=== PATIENT | female | born 1990 | race Caucasian/White ===

== ENCOUNTER 2017-04-17 01:33 | Inpatient (IN) | payer OTHER ==
[~2017-04-17] VITALS: Ht 152.4 cm; Wt 45.4 kg
--- NOTE | 2017-04-17 01:46 | NUR ---
PT BROUGHT TO ED BY FRIEND. PT RECENTLY DISCHARGED FROM FOR DEPRESSION/ANXIETY. PT LETHARGIC AND WAS WITHOUT FINE MOTOR SKILLS. PT AROUSABLE WITH VERBAL STIMULI. PT ADMITTED TO TAKING SIXTY (60) 1MG KLONOPIN, DRINKING ALCOHOL/BEER, AND SMOKING MARIJUANA IN A SUICIDE ATTEMPT. PT TAKEN DIRECTLY TO ROOM. GEMA PETERSON AND PAO VILLARREAL CHANGED PT TO BLUE SCRUBS. PT STRAIGHT CATH FOR URINE PER PT REQUEST. DR ELLER AT BEDSIDE FOR EVAL.
[2017-04-17 02:08] LABS: ABSOLUTE BASOPHIL COUNT 0 /CUMM (0.0-0.2); ABSOLUTE EOSINOPHIL COUNT 0 /CUMM (0.0-0.7); ABSOLUTE GRANULOCYTE CT 7.5 /CUMM (1.4-6.5); ABSOLUTE LYMPH COUNT 1.8 /CUMM (1.2-3.4); ABSOLUTE MONOCYTE COUNT 0.3 /CUMM (0.10-0.60); BASOPHIL % 0.3 % (0.0-2.0); EOSINOPHIL % 0.5 % (0-5); GRANULOCYTE % 77.9 % (42.2-75.2); HEMATOCRIT 36.8 % (37-47); MEAN CORPUSCULAR HGB 29.2 PG (27.0-31.0); MEAN CORPUSCULAR VOLUME 88.6 FL (81.0-99.0); MEAN PLATELET VOLUME 8.8 FL (7.4-10.4); PLATELET COUNT 218 /CUMM (130-400); RBC DISTRIBUTION WIDTH 13.1 % (11.5-14.5); RED BLOOD CELL CT 4.15 /CUMM (4.20-5.40); WHITE BLOOD CELL COUNT 9.6 /CUMM (4.8-10.8)
--- NOTE | 2017-04-17 02:14 | ED PSYCHIATRIC COMPLAINT ---
History of Present Illness General Chief Complaint: ETOH/Drug Related Complaint Stated Complaint: ? OD , ? SI BIB SECURITY UPON MAIN ENTRANCE' Source: patient, old records, friend Exam Limitations: intoxication Vital Signs & Intake/Output Vital Signs & Intake/Output Vital Signs Date Time Temp Pulse Resp B/P B/P Pulse O2 O2 Flow FiO2 Mean Ox Delivery Rate 04/17 627 97.9 82 20 94/57 96 Room Air 04/17 0406 70 20 89/56 98 Room Air 04/17 0234 Room Air 04/17 0157 98.0 76 18 108/55 100 Room Air Allergies Coded Allergies: No Known Allergies (04/17/17) Triage Note: PT BROUGHT TO ED BY FRIEND. PT RECENTLY DISCHARGED FROM [facility] FOR DEPRESSION/ANXIETY. PT LETHARGIC AND WAS WITHOUT FINE MOTOR SKILLS. PT AROUSABLE WITH VERBAL STIMULI. PT ADMITTED TO TO TAKING SIXTY (60) 1MG KLONOPIN, DRINKING ALCOHOL/BEER, AND SMOKING MARIJUANA IN A SUICIDE ATTEMPT. PT TAKEN DIRECTLY TO ROOM. GEMA PETERSON AND PAO VILLARREAL CHANGED PT TO BLUE SCRUBS. PT STRAIGHT CATH FOR URINE PER PT REQUEST. DR ELLER AT BEDSIDE FOR EVAL. Triage Nurses Notes Reviewed? yes Onset: Just prior to arrival Duration: hour(s):, constant, continues in ED Timing: recent history Severity: severe Associated Symptoms: anxiety, impaired concentration, suicidal ideation LMP (ages 10-50): unknown : No Patient currently breastfeeds: No HPI: Patient was recently discharged from [facility] for suicidal ideation and depression. Prior to admission she drank tequila and beer reporting that she took 60 Klonopin to kill herself. She presents with an empty bottle of Klonopin. She denies fever chills nausea vomiting diarrhea abdominal pain chest pain shortness of breath headache dysuria rash bleeding homicidal ideation hallucination. (TIERNEY ELLER MD) Past History Travel History Traveled to [place] past 21 day No Medical History Any Pertinent Medical History? see below for history Psychiatric: anxiety, depression, substance abuse Surgical History Surgical History: non-contributory Psychosocial History What is your primary language Faroese Tobacco Use: Never used ETOH Use: 6 Illicit Drug Use: marijuana Family History Hx Contributory? No (TIERNEY ELLER MD) Review of Systems Review of Systems Constitutional: Reports: no symptoms. EENTM: Reports: no symptoms. Respiratory: Reports: no symptoms. Cardiovascular: Reports: no symptoms. GI: Reports: no symptoms. Genitourinary: Reports: no symptoms. Musculoskeletal: Reports: no symptoms. Skin: Reports: no symptoms. Neurological/Psychological: Reports: see HPI, confusion, emotional problems. Hematologic/Endocrine: Reports: no symptoms. Immunologic/Allergic: Reports: no symptoms. All Other Systems: Reviewed and Negative (TIERNEY ELLER MD) Physical Exam Physical Exam General Appearance: well developed/nourished, lethargic, mild distress, thin Head: atraumatic, normal appearance Eyes: Bilateral: normal appearance, PERRL, EOMI. 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 yes 2 Previous Attempts/Psych Care yes 1 Excessive Ethanol/Drug Use? yes 1 Rational Thinking Loss? yes 2 Single//? yes 1 Organized/Serious Attempt yes 2 Social Support? has support 0 Stated Future Intent? yes 2 Total 11 SAD PERSONS Done? yes (TIERNEY ELLER MD) Progress Differential Diagnosis: drug intoxication, drug overdose, drug withdrawal, electrolyte abnormality, hypoglycemia Plan of Care: Orders Procedure Date/time Status Regular Diet 04/18 B Active Continuous Observation Monitor 04/17 0545 Active Vital Signs 04/17 149 Complete Continuous Observation Monitor 04/17 149 Active Activity/Ambulation 04/17 149 Complete URINE DRUG SCREEN FOR ER ONLY 04/17 149 Complete ACETOMINOPHEN 04/17 149 Complete SALICYLATE 04/17 149 Complete ETHANOL 04/17 149 Complete COMPREHENSIVE METABOLIC PANEL 04/17 149 Complete CBC WITHOUT DIFFERENTIAL 04/17 149 Complete EKG 04/17 149 Active Intake & Output 04/17 147 Complete Laboratory Tests 04/17/17 0202: Anion Gap 12, Estimated GFR > 60, BUN/Creatinine Ratio 15.7, Glucose 87, Calcium 9.6, Total Bilirubin 0.4, AST 22, ALT 41, Alkaline Phosphatase 46, Total Protein 6.7, Albumin 4.1, Globulin 2.6, Albumin/Globulin Ratio 1.6, CBC w Diff NO MAN DIFF REQ, RBC 4.15 L, MCV 88.6, MCH 29.2, RDW 13.1, MPV 8.8, Gran % 77.9 H, Lymphocytes % 18.5 L, Monocytes % 2.8, Eosinophils % 0.5, Basophils % 0.3, Absolute Granulocytes 7.5 H, Absolute Lymphocytes 1.8, Absolute Monocytes 0.3, Absolute Eosinophils 0, Absolute Basophils 0, PUBS MCHC 33.0, Salicylates < 1.0, Acetaminophen < 10.0 L, Serum Alcohol 102.0 04/17/17 0151: Urine Opiates Screen < 100.00, Methadone Screen < 40, Barbiturate Screen < 60, Ur Phencyclidine Scrn < 6.00, Amphetamines Screen < 100, U Benzodiazepines Scrn < 85, Urine Cocaine Screen < 50, Urine Cannabis Screen 5.80 Hand-Off Endorsed To: MAIK ZARCO DO Endorsed Time: 0700 Pending: consult Comments: Hospitalization ordered based on history of overdose by patient but reversed as her drug screen was negative and she continued to be confrontational and agitated to admitting hospitalist. (TIERNEY ELLER MD) Departure Departure Disposition: STILL A PATIENT Condition: Stable Clinical Impression Primary Impression: Depression with suicidal ideation Secondary Impressions: Alcohol intoxication Qualifiers: Complication of substance-induced condition: with delirium Qualified Code: F10.921 - Alcohol use, unspecified with intoxication delirium Referrals: PATIENT HAS NO PRIMARY CARE DR (PCP/Family) Departure Forms: Customer Survey General Discharge Information (TIERNEY ELLER MD) Departure Comments 04/17/17 The patient was signed out to me by Dr. Eller. She is pending crisis evaluation. (MAIK ZARCO DO)
--- NOTE | 2017-04-17 02:38 | NUR ---
ONE (1) BELONGINGS BAG TO CLOSET. ONE (1) VALUABLE BAG TO [facility] ROOM SAFE
--- NOTE | 2017-04-17 02:56 | History & Physical ---
General Information and HPI Allergies/Medications Allergies: Coded Allergies: No Known Allergies (04/17/17) Past History Travel History Traveled to [place] past 21 day No Medical History Psychiatric: anxiety, depression, substance abuse Isolation History: Standard Past Family/Social History Psychosocial History ETOH Use: 6 Illicit Drug Use: marijuana
--- NOTE | 2017-04-17 03:08 | NUR ---
POC: ADMIT TO TELE INPATIENT, WILL BE HOLD IN ED OVERNIGHT. SLEEPING ON STRETCHER AT THIS TIME W/ REGULAR RESPIRATIONS. HR: 63 NSR ON MONITOR.
--- NOTE | 2017-04-17 04:09 | NUR ---
EVALUATED BY HOUSE STAFF AND MD TANNER. PATIENT REQUESTING ADDISON TO BE D/JOHN. HOUSE STAFF AWARE AND OKAY W/ D/CING ADDISON. ADDISON D/JOHN W/O DIFFICULTY. 500ML CLEAR YELLOW URINE EMPTIED PRIOR TO D/CING. PATIENT LAYING ON STRETCHER IN ROOM, NOTED TO BE PULLING BLANKET OVER HER HEAD STATING "THE LIGHTS ARE TOO BRIGHT, I FEEL LIKE I'M HAVING A BAD HANGOVER." PATIENT LIGHTS DIMMED.
--- NOTE | 2017-04-17 04:54 | NUR ---
POC: EVALUATED BY HOUSE STAFF, PATIENT NO LONGER ADMISSION TO HOSPITAL, BEING CHANGED TO ER PATIENT W/ CRISIS EVAL D/T NEGATIVE U-TOX S/P PATIENT REPORTED OD ON KLONOPIN.
--- NOTE | 2017-04-17 06:31 | NUR ---
AWAKE FOR V/S OFFERS NO COMPLAINTS
--- NOTE | 2017-04-17 07:50 | NUR ---
ASSUMED CARE OF PT WHO IS CURRENTLY SLEEPING. RR EVEN AND UNLABORED. SITTER REMAINS AT BEDSIDE.
--- NOTE | 2017-04-17 08:27 | NUR ---
Patient found with a cell phone and when asked why she had it, she replied that when her friend was with her last night, she gave it to her when she left. Explained per hospital policy, we would have to lock it up with her other valuables. Valuables bag given to Pod 2 RN. Patient took various tele phone numbers off her phone.
--- NOTE | 2017-04-17 10:15 | NUR ---
PT WITH NO COMPLAINTS AT THIS TIME. SITTER REMAINS AT BEDSIDE.
[2017-04-17] MEDS ORDERED: CLONAZEPAM1 M2 PO (10:16)
[2017-04-17] MEDS ORDERED: DULOXETINE HCL60 MG PO (10:16)
[2017-04-17] MEDS ORDERED: TRAZODONE HCL100 M1 PO (10:17)
[2017-04-17] MEDS ORDERED: ALLEGRA ALLERG180 M1 PO (10:18)
--- NOTE | 2017-04-17 12:30 | NUR ---
PT CALLED THIS NURSE TO FIND OUT WHAT HER POC IS AND INFORMED I WILL CHECK AND GET BACK TO HER. PER NURSE PT WAS AWAITING EVAL BY CRISIS BUT PER CRISIS NO ORDER PLACED. MD ZARCO INFORMED AND ORDER PLACED AND CRISIS UPDATED AND PT ALSO UPDATED SHE WILL BE EVALUATED SOON
--- NOTE | 2017-04-17 14:26 | NUR ---
PT WAS REFUSING TO DISCUSS WITH SLICING MACHINE FEEDER RAJNI SHE SPOKE WITH MD AND NURSE ALL TOGETHER. DR. ZARCO AND THIS WOMENS VOLLEYBALL COACH AND CLINICIAN SPOKE AT [facility] WITH PT AND THE END RESULT IS TO REPEAT URINE TOX AND PT NOW WILLING TO TRY ICE CHIPS
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
--- NOTE | 2017-04-17 17:24 | NUR ---
PT ON PHONE
[2017-04-17 17:25] VITALS: BP 116/64
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
--- NOTE | 2017-04-17 19:06 | NUR ---
REPORT TO RA IN [facility]
[2017-04-17 19:20] VITALS: BP 114/64
--- NOTE | 2017-04-17 19:34 | NUR ---
PT TRANSPORTED TO [facility]. ALL BELONGINGS GIVEN TO [facility] STAFF
[2017-04-17 19:51] VITALS: BP 123/89
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
--- NOTE | 2017-04-17 23:27 | Admission Certification ---
Admission Certification Certification Statement - As attending physician, I certify that at the time of - admission, based on clinical presentation, severity of - symptoms, need for further diagnostic testing and - therapeutic interventions, and risk of adverse outcomes - without in-hospital treatment, in my clinical assessment, - this patient requires an acute hospital stay for a minimum - of two nights or longer. I have also considered psychsocial - factors such as support system, advanced age, financial - issues, cognitive issues, and failed out-patient treatments, - past re-admission history, safety of patient, and lack of - compliance as applicable. Specific rationale supporting this admission is: suicidal ideation
[2017-04-18] VITALS (9 sets, daily range): BP systolic 92–112; BP diastolic 53–73
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
--- NOTE | 2017-04-18 14:31 | NUR ---
PT IS PLEASANT, CALM, COOPERATIVE AND COMPLIANT. PT IS CONCERNED WITH HER NUTRTION AND HAD A NUTRITIONAL CONSULT A RESULT. PT HAS BEEN ATTENDING GROUPS ALL MORNING. PT REPORTED FEELING A BIT ANXIOUS DUE TO THE DECREASED ANXIOLYTICS BUT WANTS TO FIND POSITIVE COPING SKILLS THAT DON'T INCLUDE MEDICATIONS. VS ARE STABLE AND DENIES ANY SI/HI TO THIS MHW.
--- NOTE | 2017-04-18 18:05 | NUR ---
PT IS CALM, COOPERATOVE WITH STAFF AND PEERS, AND COMPLIANT WITH UNIT RULES. OFTEN IN MILIEU, INTERACTING WELL WITH OTHERS. MOOD IS STABLE, AFFECT APPEARS EUTHYMIC TO FULL RANGE, COMMUNICATION IS ORGANIZED AND APPEARS NORMAL IN ALL RESPECTS, AND APPETITE IS NORMAL. PT DENIES SI AT THIS TIME.
[2017-04-19] VITALS (10 sets, daily range): BP systolic 100–111; BP diastolic 53–83
--- NOTE | 2017-04-19 06:02 | NUR ---
PATIENT SLEPT ALL NIGHT.
--- NOTE | 2017-04-19 07:19 | NUR ---
Patient was up at desk at 0700, anxious, tremulous, restless, did not seem able to stand still; she reported several severe nightmares during the night; blood pressure and pulse were normal, but CIWA score based on symptoms was 11, so prn Ativan 1mg was given; patient was also mildly diaphoretic; patient has been cooperative with treatment plan, and has not pushed for extra doses of benzodiazepine medications.
--- NOTE | 2017-04-19 12:22 | NUR ---
PT REPORTED FEELING DEPRESSED AND ANXIOUS TODAY. SHE DENIED ANY THOUGHTS OF SUICIDE OR SELF HARM. SHE VERBALIZED HER FEELINGS APPROPRIATELY IN GROUPS AND ONE TO ONE WITH STAFF. SHE IS COMPLIANT WITH HER MED REGIME AND IS FRIENDLY WITH STAFF AND PEERS
--- NOTE | 2017-04-19 12:55 | CP SOUTH PROGRESS NOTE PSYCH ---
Psych (Inpt) Progress Note Progress Note Include the following elements, when applicable: Involvement in the active treatment of the patient with behavioral observations of the patient and the patient's response to the treatment. Review of the ongoing treatment process in the context of the treatment plan. Indication of how multi-disciplinary staff members are carrying out the treatment plan. Plans for future interventions and recommendations for revision of the treatment plan. Liaison with other physicians/providers. Progress Note: Patient seen chart reviewed d/w nursing staff she reports NM at night "it might be worse but i have been having alot of triggers here". She denies si/hi. reports some "odd feeling" with gabapentin which has been helping with anxiety. Sleeping okay but inquiring about dc, states she has apt on thu with therapist and provider on . denies cravings urges for alcohol CF, thin, short hair casually dressed, no pmr/pma cooperative fair eye contact. normal speech, anxious mood congruent affect. linear denies si/hi or psychosis. i/j limited Depressive d/o alcohol abuse ptsd will reduce gabapentin to 200mg tid, also make ciwa q4 hours not scoring, could be having some odd sensation from reduction in klonopin since arrival she will d /w primary team tomorrow
--- NOTE | 2017-04-19 18:12 | NUR ---
PT IS CALM, COOPERATIVE WITH STAFF AND PEERS, AND COMPLIANT WITH UNIT RULES. OFTEN IN MILIEU, INTERACTING WELL WITH OTHERS. MOOD IS STABLE, AFFECT APPEARS EUTHYMIC TO FULL RANGE, COMMUNICATION IS ORGANIZED AND APPEARS NORMAL IN ALL RESPECTS, AND APPETITE IS NORMAL. PT DENIES SI AT THIS TIME.
[2017-04-20] VITALS (8 sets, daily range): BP systolic 106–122; BP diastolic 63–83
--- NOTE | 2017-04-20 12:58 | NUR ---
PT IS COMPLIANT AND COOPERATIVE WITH UNIT RULES. PT IS OUT IN THE COMMUNITY INTERACTING WELL WTIH OTHERS. PT IS ATTENDING GROUPS. PT MOOD IS STABLE WITH A EYUTHMIC TO FULL RANGE AFFECT. PT REPORTS SOME ANXIETY THIS SHIFT. PT DENIES SI THOUGHTS.
--- NOTE | 2017-04-20 16:52 | CP SOUTH PROGRESS NOTE PSYCH ---
Psych (Inpt) Progress Note Progress Note Include the following elements, when applicable: Involvement in the active treatment of the patient with behavioral observations of the patient and the patient's response to the treatment. Review of the ongoing treatment process in the context of the treatment plan. Indication of how multi-disciplinary staff members are carrying out the treatment plan. Plans for future interventions and recommendations for revision of the treatment plan. Liaison with other physicians/providers. Progress Note: I discussed this patient's progress to date, current mental status, treatment process in the context of the treatment plan, and discharge planning with staff/ team in the daily morning inpatient team meeting. I also met with the patient myself in individual session. Current Medications Sig/Arnulfo Start time Last Medication Dose Route Stop Time Status Admin Aripiprazole 2 MG 2100 04/20 2100 UNVr PO Clonazepam 0.5 MG TID 04/18 1000 AC 04/20 PO 04/24 1559 1528 Duloxetine HCl 60 MG DAILY 04/18 1000 AC 04/20 PO 0850 Gabapentin 200 MG 0800,1400,2200 04/20 220 UNVr PO Gabapentin 200 MG Q6P PRN 04/19 1200 AC 04/20 PO 0945 Loratadine 10 MG DAILY 04/18 1000 AC 04/20 PO 0850 Lorazepam 2 MG Q2P PRN 04/17 1515 AC 04/17 PO 1740 Lorazepam 1 MG Q2P PRN 04/17 1515 AC 04/19 PO 0715 Multivitamins 1 TAB DAILY 04/17 1512 AC 04/20 PO 0850 Prazosin HCl 2 MG AT BEDTIME 04/200 UNVr PO Prazosin HCl 1 MG AT BEDTIME 04/18 2200 DC 04/19 PO 2126 Trazodone HCl 200 MG AT BEDTIME 04/17 2200 AC 04/19 PO 2126 Vital Signs Date Time Temp Pulse Resp B/P B/P Pulse O2 O2 Flow FiO2 Mean Ox Delivery Rate 04/20 1552 81 116/83 04/20 1535 81 116/63 04/20 1227 73 122/64 04/20 1226 73 122/64 04/20 0815 97.1 98 106/82 04/20 0813 97.8 98 106/82 04/19 2126 81 107/83 04/19 1955 97.2 81 107/83 04/19 195 97.2 81 107/53 A: Chart, progress notes, labs, vital signs and medication list were reviewed. Vital signs within normal limits. Scoring low on CIWA. Patient is a 26-year-old female w/ a hx of depression, PTSD and alcohol abuse who was brought into [facility] ED on 04/17/17 by her friend s/p overdose attempt on Klonopin. Claimed she took #90 tabs of 1mg Klonopin, with unclear intent. BAL = 102. Stated triggering event was a challenging therapy session the day before ED arrival which led her to ruminate over past feelings. Stated she decided to meet up with a friend, drank, and then took "the pills" to alleviate depression. She reported multiple prior suicide attempts (9 overdoses and jumping from a 3rd story window which required medical tx); last suicide attempt was 5 years ago when she jumped from 3rd story window. 15 prior psychiatric hospitalizations, last at [facility] 1 month ago. Since, she has been attending [facility] IOP (med management only) and seeing an individual therapist (Darren Saul at [facility] in [place], [place]). She denied having a problem with alcohol, stated she drank d/t feeling overwhelmed. Stated that prior to drinking last , she drank 2-3 beers total on a weekly basis. Stated that she had been prescribed 1mg Klonopin TID outpatient; was focused on this dose being increased while here. Declined patient's request given recent OD. Patient agreeable to trial alternative medication options while here to manage anxiety. Met with patient this afternoon. Oriented x 3. Described having an "ok" weekend. Continues to feel depressed. Rates anxiety a 10/10 (10 being the worst). Rates depression a 7-8/10 (10 being the worst). Shares that she needs Cymbalta increased, however, recalls that when it was first started/increased (approx. 1 month ago) her appetite diminished. States she is trying to gain healthy weight, had a nutrition consult to learn about other ways to supplement her appetite. Now taking ensure with meals. Tolerating this well. Denies hx of disordered eating. Talked about medications that could be used to adjunct antidepressant effect, given her concern of destabilizing her appetite by further increasing Cymbalta. Mentioned using low-dose Abilify as an adjunct to Cymbalta to further target depression. Reviewed the risk/benefit/se profiles including movement disorders, metabolic syndrome, weight gain, diabetes, hypertension and hyperlipidemia. Patient verbalized understanding and was agreeable to trial. Today, she denies active and passive suicidal ideation, plans and intent. Denies homicidal ideation, auditory and visual hallucinations. Reports continued nightmares and DFA secondary to NMAs. Agreeable to increase Prazosin 1mg to 2mg QHS for NMAs. Reports mild ruminative thoughts. No evidence of paranoia or delusions. Reports appetite is slowly improving. Thought process linear, goal- directed. Cognition grossly intact. Pt w/ hx of MDD, PTSD who presented volutnarily for inpatient psych admission, making slow progress s/p overdose attempt with continued depression. Continues to require inpatient psychiatric hospitalization for stabilization, safety and medication monitoring. P: -cont. monitoring on unit for safety, mood and SI. -change Gabapentin 200mg Q6H prn to 200mg TID for anxiety/discomfort. -cont. Cymbalta 60mg daily for depression. -cont. Klonopin 0.5mg TID. -start Abilify 2mg QPM for ruminative thoughts/antidepressant adjunct. -dispo. planning per primary team.
--- NOTE | 2017-04-20 19:26 | SOCIAL WORKER PROG NOTE PSYCH ---
Social Work Progress Note Progress Note 04/20/17, 5:55pm: This Sw met with patient. Pt discussed events leading to hospitalization stating that she had begun to discuss trauma with her outpatient therapist and did not have adequate coping skills to manage the emotions resulting in overdose. Pt stated that she also drank alcohol, 4-5 shots and 1 beer. She stated, "I don't have any addiction problem, I have a coping skills problem." Pt stated that she has been coping with emotions through alcohol use. This underwriter approached AA meetings with the pt, however, she stated that she was not interested due to not identifying as having an addiction. Pt stated that she made the decision upon discharge from [facility] on 03/16/17 not to drink and drank once when she overdosed resulting in current admission. Pt identified as being in a "pretty deep depression." She identified a plan for tonight to "attend group, talk to supports by phone, shower, take my meds and go to bed." Pt stated that she is not interested in IOP, however, is interested in outpatient treatment. Pt will sign a NORRIS for her friend, Abril. She has agreed to schedule a family meeting with the friend and this underwriter will attempt to contact Abril by phone.
--- NOTE | 2017-04-20 22:14 | NUR ---
PT IS VISIBLE ON UNIT, SOCIAL WITH PEERS AND ATTENDING GROUPS. PT IS OVERALL COOPERATIVE AND COMPLIANT WITH STAFF. PT DID REPORT TO STAFF FEELING OUT OF BEHAVIORAL CONTROL WHEN DEALING WITH ANGER TOWARDS PEER. PT WAS PROVIDED WITH SUPPORT FROM STAFF AND CHARGE NURSE MADE AWARE. NO COMPLAINTTS OR SI REPORTED. PT HAS AN ANXIOUS MOOD AND LABILE AFFECT.
--- NOTE | 2017-04-20 23:49 | NUR ---
Patient c/o not being able to use blankets out on unit. Patient was offered warmer clothing and refused. Patient became tearful and acted out in room without further incident.
[2017-04-21] VITALS (7 sets, daily range): BP systolic 112–121; BP diastolic 60–69
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
--- NOTE | 2017-04-21 11:28 | SOCIAL WORKER PROG NOTE PSYCH ---
Social Work Progress Note Progress Note Called [facility] [phone] left clincial for review on voicemail requesting additional days.
--- NOTE | 2017-04-21 14:04 | NUR ---
PT IS STABLE WITH FULL RANGE OF AFFECT. PT WAS TEARFUL EARLIER IN THE MORNING AFTER FINDING OUT THAT HER NEPHEW MAY HAVE LEUKEMIA AFTER JUST BATTLING WITH A NEOGLASTOMA. PT FEELS THAT SHE NEEDS TO BE THERE "SUPPORT" FOR HER FAMILY. PT REPORTED UNDERSTANDING THAT SHE "NEEDS TO TAKE CARE OF MYSELF FIRST AND THEN BE THERE FOR THEM". OTHERWISE PT IS APPROPRIATE, PLEASANT AND COOPERATIVE. VS ARE STABLE AND DENIES ANY SI/HI TO THIS MHW.
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
--- NOTE | 2017-04-21 16:35 | SOCIAL WORKER PROG NOTE PSYCH ---
Social Work Progress Note Progress Note SW received vm from [facility] regarding authorization: - authorized and with a review on the with Trish Dickens at [phone]
--- NOTE | 2017-04-21 18:17 | SOCIAL WORKER PROG NOTE PSYCH ---
Social Work Progress Note Progress Note 5:30pm Sw met with Pt. She reported that she is learning coping skills to manage her depression, particularly "keeping busy." Pt stated that she thought about our last conversation regarding AA and has become interested in learning more. She plans to attend the AA meeting mio on this unit. Pt was informed that this editorial writer was able to reach her friend, Judy Dominguez, and a phone session has been scheduled for 04/22/17 at 1pm. Pt was in agreement with this. Regarding discharge plans, she stated that she is not able/willing to attend IOP due to work and would like to return to her individual therapist, Angela Saul, at the [facility] in [place], [place]. She stated that she had an appt scheduled with this provider on 04/22/17 at 7pm and Cj Saul was notified by the pt's friend that the pt is currently in the hospital. Additionally, she stated that she has an CHIROPRACTIC TEACHER, Catrachita (last name unknown), whom she is willing to schedule an appt with as part of her discharge plan, however, has spoken with Cj Saul in interest of finding a new CHIROPRACTIC TEACHER. Pt will sign NORRIS's for her providers and SW will follow up regarding discharge plans.
[2017-04-22] VITALS (8 sets, daily range): BP systolic 109–125; BP diastolic 61–74
--- NOTE | 2017-04-22 06:39 | NUR ---
PATIENT WAS BRIEFLY AWAKE IN BED X1, OTHERWISE SLEPT ALL NIGHT.
--- NOTE | 2017-04-22 13:22 | NUR ---
PT IS COMPLIANT AND COOPERATIVE. MOOD IS STABLE WITH A FULL RANGE OF AFFECT. PT DENIES SI AT THIS TIME, C/O CHRONIC PAIN. PT IS PRESENT IN THE COMMUNITY AND INTERACTING WELL WITH PEERS AND STAFF. PT IS ATTENDING GROUPS. VITALS ARE STABLE, APPETITE IS GOOD.
--- NOTE | 2017-04-22 13:41 | CP SOUTH PROGRESS NOTE PSYCH ---
Psych (Inpt) Progress Note Progress Note Include the following elements, when applicable: Involvement in the active treatment of the patient with behavioral observations of the patient and the patient's response to the treatment. Review of the ongoing treatment process in the context of the treatment plan. Indication of how multi-disciplinary staff members are carrying out the treatment plan. Plans for future interventions and recommendations for revision of the treatment plan. Liaison with other physicians/providers. Progress Note: I discussed this patient's progress to date, current mental status, treatment process in the context of the treatment plan, and discharge planning with staff/ team in the daily morning inpatient team meeting. I also met with the patient myself in individual session. Current Medications Sig/Arnulfo Start time Last Medication Dose Route Stop Time Status Admin Aripiprazole 2 MG 2100 04/20 2100 AC 04/21 PO 212 Clonazepam 0.5 MG TID 04/18 1000 AC 04/22 PO 04/24 1559 0842 Duloxetine HCl 60 MG DAILY 04/18 1000 AC 04/22 PO 0841 Gabapentin 400 MG 0800,1400,0 04/22 1400 AC 04/22 PO 1408 Gabapentin 300 MG Q6P PRN 04/21 1400 AC 04/22 PO 1241 Gabapentin 300 MG 0800,1400,0 04/21 1400 DC 04/22 PO 0841 Glycerin 2 SPRAY Q2P PRN 04/21 1400 AC 04/22 PO 1408 Loratadine 10 MG DAILY 04/18 1000 AC 04/22 PO 0841 Lorazepam 2 MG Q2P PRN 04/17 1515 AC 04/17 PO 1740 Lorazepam 1 MG Q2P PRN 04/17 1515 AC 04/19 PO 0715 Multivitamins 1 TAB DAILY 04/17 1512 AC 04/22 PO 0841 Prazosin HCl 2 MG AT BEDTIME 04/20 2200 AC 04/21 PO 2126 Sodium Chloride 2 SPRAY Q4P PRN 04/22 1015 AC LINDSAY Trazodone HCl 200 MG AT BEDTIME 04/17 2200 AC 04/21 PO 2127 Vital Signs Date Time Temp Pulse Resp B/P B/P Pulse O2 O2 Flow FiO2 Mean Ox Delivery Rate 04/22 1232 78 117/66 04/22 1230 78 117/66 04/22 0832 99.0 98 125/74 04/22 0830 99.0 78 125/74 04/216 79 113/60 04/21 2012 98.9 79 113/60 04/21 2011 98.9 79 113/60 04/21 1631 88 112/63 04/21 1612 88 / A: Chart, progress notes, labs, vital signs and medication list were reviewed. Vital signs within normal limits. Met with patient this afternoon together with Nani Hernández LCSW. Patient reports improved anxiety since increase in gabapentin yesterday. Rates anxiety today a 4-5/10 (10 being the worst). She asked about increasing gabapentin further for more anxiolytic relief, as she reports steadily worrying about 6y/o nephew who might have leukemia (found this out by phone yesterday). She also reports continued NMAs and requested an increase in Prazosin. States that her depression is variable "as low as a 3 and as high as a 9 at times (using 0-10 scale)." She denies passive and active suicidal ideation, plans and intent. Denies homicidal ideation, auditory and visual hallucinations. Denies racing thoughts or paranoia. There was no evidence of delusional content. Denies feeling hopeless, helpless and worthless. Reports lessening guilt from prior OD. Thought process linear, goal-directed. A phone conference was held with the patient, her roommate/best friend Abril, Nani Hernández LCSW, and I. Patient's treatment progress to date, medication regimen, discharge planning and level of safety were reviewed/discussed. Abril stated that she is aware of the circumstances which led to patient's present hospitalization, including her overdose. She shared that the patient has a difficult time being alone, had struggled processing therapy session which resulted in overdose. Abril seemed very supportive and willing to be involved in the patient's care post-discharge. She did not disclose any safety concerns regarding the patient's discharge or tentative discharge plan of resuming therapy and medication management with former outpatient providers. We also talked about the patient engaging in AA meetings for support in sobriety as she identified that she tends to resort to alcohol use to cope with unpleasant feelings. She shared that she attended the AA meeting on unit and took away positive feedback from the group and also highlighted meeting dates/times in AA meeting schedule book that she can attend on her free time outside of the hospital. Both the patient and Abril were in favor of discharge plan. P: -cont. monitoring on unit for safety, mood and SI. -increase Prazosin 2mg QHS to 3mg QHS for NMAs. -increase standing Gabapentin 300mg TID to 400mg TID for anxiety/discomfort. -collaborate with former therapist/prescriber to arrange aftercare appointments. P: -cont. monitoring on unit for safety, mood and safety. -Increase Gabapentin from 300mg TID to 400mg TID for anxiety/discomfort. -Increase Prazosin 2mg QHS to 3mg QHS for NMAs. -Dispo planning per primary team.
--- NOTE | 2017-04-22 17:08 | SOCIAL WORKER PROG NOTE PSYCH ---
Social Work Progress Note Progress Note 4:55pm: This Sw left vm for Angela Saul LCSW, patient's individual outpatient therapist, requesting a call back. A call back number was provided. Plan is to schedule an outpatient individual therapy appointment. 4:58pm: Attempted to reach pt's outpatient medication provider, Catrachita Rubio, however, office was closed. This Sw will attempt to call during office hours to schedule appt for pt as part of pt's discharge plan.
--- NOTE | 2017-04-22 18:12 | NUR ---
PT IS CALM, COOPERATIVE WITH STAFF AND PEERS, AND COMPLIANT WITH UNTI RULES. OFTEN IN [place], INTERACTING WELL WITH OTHERS. MOOD IS STABLE, AFFECT APPEARS EUTHYMIC TO FULL RANGE, COMMUNICATION IS ORGANIZED AND APPEARS NORMAL IN ALL RESPECTS, AND APPETITE IS NORMAL. PT DENIES SI AT THIS TIME.
--- NOTE | 2017-04-22 19:18 | SOCIAL WORKER PROG NOTE PSYCH ---
Social Work Progress Note Progress Note 1:15pm Macrina Cardoso APRN met with pt. Pt discussed questions and concerns about medications. She reported that she is sleeping well and has an improved mood, however reports variable levels of anxiety with highest at a 9/10 at times. Discharge plans were also discussed with an anticipated d/c date of tomorrow or Thursday (04/24/17). She signed NORRIS for her outpt therapist and WASHER ENGINEER. Pt stated that she is interested in finding a new medication prescriber and will work with her therapist on this. She is willing to schedule an appt with her current WASHER ENGINEER at this time. 1:25pm González GONZALES APRN and pt contacted her friend, Judy, by phone for a family session. Discharge plans were reviewed and pt stated that she also intends on going to AA meetings. She shared that she has obtained a meeting schedule and begun to identify meetings she can attend. Abril stated that she is aware of the events, including the OD, leading to the current inpt admission. She does not have any concerns about the pt discharging from the hospital. Strategies to manage emotions were discussed. Neither pt, nor her friend, have concerns about the pt's ability to be compliant with medications.
[2017-04-23] VITALS (7 sets, daily range): BP systolic 112–124; BP diastolic 63–75
--- NOTE | 2017-04-23 08:24 | CP SOUTH PROGRESS NOTE PSYCH ---
Psych (Inpt) Progress Note Progress Note Include the following elements, when applicable: Involvement in the active treatment of the patient with behavioral observations of the patient and the patient's response to the treatment. Review of the ongoing treatment process in the context of the treatment plan. Indication of how multi-disciplinary staff members are carrying out the treatment plan. Plans for future interventions and recommendations for revision of the treatment plan. Liaison with other physicians/providers. Progress Note: I discussed this patient's progress to date, current mental status, treatment process in the context of the treatment plan, and discharge planning with staff/ team in the daily morning inpatient team meeting. I also met with the patient myself in individual session. Current Medications Sig/Arnulfo Start time Last Medication Dose Route Stop Time Status Admin Aripiprazole 2 MG 2100 04/20 2100 AC 04/22 PO 210 Clonazepam 0.5 MG TID 04/18 1000 AC 04/23 PO 04/24 1559 0804 Duloxetine HCl 60 MG DAILY 04/18 1000 AC 04/23 PO 0805 Gabapentin 400 MG 0800,1400,2200 04/22 1400 AC 04/23 PO 0805 Gabapentin 300 MG Q6P PRN 04/21 1400 AC 04/22 PO 1241 Gabapentin 300 MG 0800,1400,2200 04/21 1400 DC 04/22 PO 0841 Glycerin 2 SPRAY Q2P PRN 04/21 1400 AC 04/22 PO 1739 Loratadine 10 MG DAILY 04/18 1000 AC 04/23 PO 0805 Lorazepam 2 MG Q2P PRN 04/17 1515 AC 04/17 PO 1740 Lorazepam 1 MG Q2P PRN 04/17 1515 AC 04/19 PO 0715 Multivitamins 1 TAB DAILY 04/17 1512 AC 04/23 PO 0805 Prazosin HCl 3 MG AT BEDTIME 04/22 2200 AC 04/22 PO 2108 Prazosin HCl 2 MG AT BEDTIME 04/20 2200 DC 04/21 PO 2126 Sodium Chloride 2 SPRAY Q4P PRN 04/22 1015 AC 04/22 LINDSAY 1741 Trazodone HCl 200 MG AT BEDTIME 04/17 2200 AC 04/22 PO 2107 Vital Signs Date Time Temp Pulse Resp B/P B/P Pulse O2 O2 Flow FiO2 Mean Ox Delivery Rate 04/238 97.7 95 119/64 04/22 2108 82 109/61 04/22 1950 97.1 82 109/61 04/22 194 97.1 82 109/61 04/22 1623 81 116/64 04/22 1622 81 116/64 04/22 1232 78 117/66 04/22 1230 78 117/66 04/22 0832 99.0 98 125/74 04/22 0830 99.0 78 125/74 A: Chart, progress notes, labs, vital signs and medication list were reviewed. Vital signs within normal limits. Met with patient this morning. Oriented x 3. Alert. Presents in good spirits. States she woke up early this morning due to a screaming patient. Otherwise, reports sleeping well overnight with a few minor awakenings d/t "weird dreams." Reports being able to return to sleep following these dreams. States stress level was high last evening d/t a particular female patient who is very disruptive on unit. Also continues to worry about the health of her 6y/o nephew. States she is coping by exercising and doing yoga. Feels increase in gabapentin is also helping her manage anxiety. States her energy level and appetite are good. Reports sleep is improved since admission to hospital. Rates anxiety a 4/ 10 (10 being the worst). States her depression fluctuates. Denies active and passive suicidal ideation, plans and intent. States she has not endorsed SI since prior to OD leading her here. Reports today that Daniel OD was not a suicide attempt but rather an attempt to cope with anxiety. Denies homicidal ideation, auditory and visual hallucinations. Describes mood as "clear." Affect bright, full-range, non-labile. Eye contact appropriate. Speech normal in rate, tone and volume. Thought process linear and goal-directed to return to work and follow-up with tentative aftercare plan. Patient is agreeable to follow up with [facility]PS for medication management in the event that her former prescriber does not take her back. Patient reports tolerating medications well, denies untoward effects. Will continue medications as prescribed. P: -cont. current medications. -cont. monitoring on unit for safety, mood and SI. -dispo planning per primary team. -discharge tomorrow.
--- NOTE | 2017-04-23 13:41 | NUR ---
PT IS COMPLIANT AND COOPERATIVE. MOOD IS STABLE WITH A FULL RANGE OF AFFECT. PT DENIES SI AT THIS TIME, NO COMPLAINTS OFFERED. PT IS PRESENT ON THE UNIT AND INTERACTING WELL WITH PEERS AND STAFF. PT IS ATTENDING GROUPS. VITALS ARE STABLE, APPETITE IS GOOD.
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
--- NOTE | 2017-04-24 05:40 | NUR ---
PT APPEARS EUTHYMIC. PT SLEPT. SHE WILL DC TODAY.
[2017-04-24 07:34] VITALS: BP 109/80
[2017-04-24 07:52] VITALS: BP 109/80
--- NOTE | 2017-04-24 11:14 | NUR ---
PT IS SCHEDULED FOR DISCHARGE TODAY TO [facility]. SHE REPORTS AND DEMONSTRATES IMPROVEMENT IN HER MOOD AND ABILITY TO FUNCTION. PT DENIES ANY THOUGHTS OF SUICIDE OR SELF HARM AT THIS TIME. SHE IDENTIFIES POSITIVE WAYS TO COPE. SHE ENJOYS YOGA..EXERCISE AND MUSIC. SHE VERBALIZES A GOOD UNDERSTANDING OF HER MED REGIME AND TREATMENT PLAN. SHE AGREES TO FOLLOW UP WITH OUT PT. SHE IS GIVEN EDUCATION R/T MANAGING HER DEPRESSION AND ON SUICIDE PREVENTION.SHE EXHIBITS FULL RANGE OF AFFECT
--- NOTE | 2017-04-24 11:46 | CP SOUTH PROGRESS NOTE PSYCH ---
Psych (Inpt) Progress Note Progress Note Include the following elements, when applicable: Involvement in the active treatment of the patient with behavioral observations of the patient and the patient's response to the treatment. Review of the ongoing treatment process in the context of the treatment plan. Indication of how multi-disciplinary staff members are carrying out the treatment plan. Plans for future interventions and recommendations for revision of the treatment plan. Liaison with other physicians/providers. Progress Note: I discussed this patient's progress to date, current mental status, treatment process in the context of the treatment plan, and discharge planning with staff/ team in the daily morning inpatient team meeting. I also met with the patient myself in individual session. Current Medications Sig/Arnulfo Start time Last Medication Dose Route Stop Time Status Admin Aripiprazole 2 MG 2100 04/20 2100 AC 04/23 PO 2127 Clonazepam 0.5 MG TID 04/18 1000 AC 04/24 PO 04/24 1559 0833 Duloxetine HCl 60 MG DAILY 04/18 1000 AC 04/24 PO 0832 Gabapentin 400 MG 0800,1400,2200 04/22 1400 AC 04/24 PO 0832 Gabapentin 300 MG Q6P PRN 04/21 1400 AC 04/23 PO 1704 Glycerin 2 SPRAY Q2P PRN 04/21 1400 AC 04/24 PO 0835 Loratadine 10 MG DAILY 04/18 1000 AC 04/24 PO 0832 Lorazepam 2 MG Q2P PRN 04/17 1515 AC 04/17 PO 1740 Lorazepam 1 MG Q2P PRN 04/17 1515 AC 04/19 PO 0715 Multivitamins 1 TAB DAILY 04/17 1512 AC 04/24 PO 0832 Prazosin HCl 3 MG AT BEDTIME 04/22 2200 AC 04/23 PO 2127 Sodium Chloride 2 SPRAY Q4P PRN 04/22 1015 AC 04/24 LINDSAY 0834 Trazodone HCl 200 MG AT BEDTIME 04/17 2200 AC 04/23 PO 2127 Vital Signs Date Time Temp Pulse Resp B/P B/P Pulse O2 O2 Flow FiO2 Mean Ox Delivery Rate 04/24 0752 96 109/80 04/24 0734 97.6 96 109/80 04/23 2127 98.2 84 22 124/63 04/23 195 98.2 84 124/63 04/23 1956 98.2 84 124/63 04/23 1634 93 122/75 04/23 1620 93 122/75 04/23 1220 79 112/64 04/23 1219 79 112/64 A: Chart, progress notes, labs, vital signs and medication list were reviewed. Vital signs within normal limits. Met with the patient this morning together with Nani Hernández LCSW, on the date of discharge. Patient oriented x 3. Reported an improved mood, feeling "more even." Shared she attended an AA meeting on the unit last evening and selected meetings to attend from her AA schedule book post-discharge. Affect calm, full- range. Eye contact appropriate. Speech normal in rate, tone and volume. Offered no complaints. Stated last night, she experienced occasional "weird" dreams, but denied these were distressing. Reported an increased appetite. Expressed sleeping better than prior to admission. Denied feeling hopeless, helpless, worthless and guilty. Rated anxiety a 4/10 (10 being the worst). Yesterday, she received scheduled Gabapentin 400mg TID and additional prns for anxiety. Patient agreeable to increasing Gabapentin to 600mg TID on discharge. Rated depression a 4-5/10 (10 being the worst). Stated and also believed she will not harm herself or others. Gave protective factors of her friends "Abril" and "Ranjit." She denied active and passive suicidal ideation, plans and intent. Denied homicidal ideation, auditory and visual hallucinations. Denied ruminative/racing thoughts. Thought process linear, goal-directed. 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 Looking forward to establishing with a new prescriber at [facility]. She reported tolerating medications well and denied untoward medication effects. She reported feeling safe and ready for discharge. P: -Discharge today to home and self-care. -F/u at [facility] w/ Son Palmer APRN, on 05/04/17 at 8:30AM for intake/medication evaluation. -F/u w/ established therapist Angela Saul LCSW, on 04/27/17 at 6:00PM for individual therapy. -Patient was strongly advised/encouraged to abstain from all substances, to attend daily to weekly AA meetings and obtain a sponsor for support in sobriety. -Patient advised that in the event of an emergency to call 911/211/go to the nearest emergency department. Patient verbalized understanding of all instructions. -Discharge medications were e-prescribed today to [facility] in [place], [place] per patient request.
[2017-04-24] MEDS ORDERED: MINIPRESS1 MG PO ×2 (12:14→12:33)
[2017-04-24] MEDS ORDERED: ABILIFY2 MG PO ×2 (12:14→12:33)
[2017-04-24] MEDS ORDERED: TRAZODONE HCL100 M1 PO ×2 (12:14→12:33)
[2017-04-24] MEDS ORDERED: NEURONTIN600 M1 PO (12:14)
[2017-04-24] MEDS ORDERED: ONE DAILY MULT1 EAC2 PO ×2 (12:14→12:33)
[2017-04-24] MEDS ORDERED: KLONOPIN0.5 M1 PO ×2 (12:14→12:33)
[2017-04-24] MEDS ORDERED: DULOXETINE HCL60 MG PO (12:14)
[2017-04-24 12:25] VITALS: BP 112/74
[2017-04-24 12:26] VITALS: BP 122/74
[2017-04-24] MEDS ORDERED: GABAPENTIN600 M1 PO (12:33)
[2017-04-24] MEDS ORDERED: CYMBALTA60 M1 PO (12:33)
--- NOTE | 2017-04-24 12:42 | DISCHARGE SUMMARY REPORT-PSYCH ---
Visit Information Visit Dates/Diagnosis' Admission Date: 04/17/17 Discharge Date: 04/24/17 Reason for Admission: Patient was brought to [facility] on 04/17/17 by her friend following a challenging therapy session which led to her ruminating over past feelings,drinking alcohol and overdosing on prescribed Klonopin due to feeling depressed at that time. She was voluntarily admitted to inpatient psychiatry. Psy Discharge Primary Diag: Unspecified depressive disorder Psy Discharge Secondary Diag: PTSD, Alcohol use disorder, R/O Cluster B traits, Erythema Nodosum. Hospital Course Significant Lab Findings: Lab Serum Alcohol 102.0 MG/DL 04/17/17 0202 04/17/17 EKG: Sinus rhythm with a rate of 60. DE: 164. QRSD: 74. QT: 412. QTc: 412. P: 50. QRS: 61. T: 19. Normal EKG confirmed by laborer landscape, Dr. Piero Argueta. Course Complications: None. Consultations: The patient was seen for admission history and physical by nailer operator Dr. Angely Nelson. Please see MD note for additional information. Allergies: Coded Allergies: No Known Allergies (04/17/17) Hospital Course/TX Response: The patient was monitored on the unit for safety, mood, suicidal ideation and alcohol withdrawal. She was monitored on [facility] protocol for alcohol withdrawal and did not require an ativan taper. She participated in multimodal treatments on the unit. Klonopin 1mg TID was decreased to 0.5mg TID for anxiety. Cymbalta 60mg daily was continued for depression. Trazodone 200mg at bedtime was continued for insomnia/depression. Abilify 2mg QPM was started as an antidepressant adjunct and for ruminative/racing thoughts. Gabapentin 200mg TID was started for anxiety and increased 600mg TID. Prazosin 1mg QHS was started for nightmares and increased to 3mg QHS. Patient tolerated all medications well and denied untoward effects. During the hospital course, the patient's mood and affect improved. Suicidal ideation remitted. Racing and ruminative thoughts stabilized. A phone conference was held with the patient, her roommate/best friend Abril, Nani Hernández LCSW, and Karli. Patient's treatment progress, medication regimen, discharge planning and level of safety were reviewed/discussed. Abril stated that she was aware of the circumstances that led to patient's present hospitalization, including her overdose. She shared that the patient has a difficult time being alone, had struggled processing therapy session which resulted in overdose. Abril seemed very supportive and willing to be involved in the patient's care post-discharge. She did not disclose any safety concerns regarding the patient's discharge or proposed discharge plan. We also talked about the patient engaging in AA meetings for support in sobriety as she identified that she tends to resort to alcohol use to cope with unpleasant feelings. She shared that she attended the AA meeting on unit and took away positive feedback from the group and also highlighted meeting dates/times in AA meeting schedule book that she can attend on her free time outside of the hospital. Both the patient and Abril were in favor of discharge plan. On the date of discharge, 04/24/17, the patient was oriented x 3. Reported an improved mood, feeling "more even." Shared she attended an AA meeting on the unit the night prior to discharge and selected meetings she would like to attend (post-discharge) from her AA meeting booklet. Affect calm, full-range. Eye contact appropriate. Speech normal in rate, tone and volume. Offered no complaints. Stated last night, she experienced occasional "weird" dreams, but denied these were distressing. Reported an increased appetite. Expressed sleeping better than prior to admission. Denied feeling hopeless, helpless, worthless and guilty. Rated anxiety a 4/10 (10 being the worst). Yesterday, she received scheduled Gabapentin 400mg TID and additional prns for anxiety. Patient agreeable to increasing Gabapentin to 600mg TID on discharge. Rated depression a 4-5/10 (10 being the worst). Stated and also believed she will not harm herself or others. Gave protective factors of her friends "Abril" and "Ranjit." She denied active and passive suicidal ideation, plans and intent. Denied homicidal ideation, auditory and visual hallucinations. Denied ruminative/racing thoughts. Thought process linear, goal-directed. 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 Looking forward to establishing with a new prescriber at [facility]. She reported tolerating medications well and denied untoward medication effects. She reported feeling safe and ready for discharge. Discharge HBIPS - Tobacco Use Treatment Offered Post DC Medications Offered: Not Applicable Post DC Tobacco Treatment Plan: Not Applicable - EtOH/Drug Use D/O Treatment Offered Post DC Medications Offered: Ref Med EtOH/Drug Use D/O Post DC EtOH/SubAbuse TX Plan: Refused Post DC Tx Pgm Metabolic Screening - Screen if on a Neuroleptic Medication - Metabolic screening should include: - Blood Pressure, BMI, Glucose or Hgb A1c, & a - Lipid profile from within the past 365 days. Metabolic Screening () Not Applicable, patient not on a neuroleptic. OR ([X]) Patient on a neuroleptic(s) . Enter below results for Glucose or Hemoglobin A1C, and lipid panel if obtained during the last 365 days. BMI: 18.900 Blood Pressure: 122/74 Laboratory Results (If applicable): Lab Glucose 87 mg/dL 04/17/17 0202 Discharge Instructions General Discharge Information Discharge Medications: Discharge Medications- (Dose, route, freq, indication): START taking these NEW Home Medications: Prazosin Dose: ORAL, AT BEDTIME for Qty: 42 Sent to Hydrochloride 3 Milligram nightmares Refills: 0 Pharm 1 (Minipress) 1 MG Take 3 caps po QHS. CAPSULE Clonazepam Dose: ORAL, THREE TIMES DAILY Qty: 33 Printed (Klonopin) 0.5 MG 0.5 Milligram for anxiety Refills: 0 TABLET Take 1 tab po TID. Gabapentin Dose: ORAL, THREE TIMES DAILY Qty: 42 Sent to (Gabapentin) 600 MG 1 Tablet for anxiety/discomfort Refills: 0 Pharm 1 TABLET Take 1 tab po TID. Duloxetine HCl Dose: ORAL, DAILY for Qty: 14 Sent to (Cymbalta) 60 MG 1 Capsule depression Refills: 0 Pharm 1 CAPSULE.DR Take 1 cap po daily. Trazodone HCl Dose: ORAL, AT BEDTIME for Qty: 28 Sent to (Trazodone HCl) 100 200 Milligram insomnia Refills: 0 Pharm 1 MG TABLET Take 2 tabs (200mg) po QHS. Aripiprazole Dose: ORAL, 2100 for mood Qty: 14 Sent to (Abilify) 2 MG 2 Milligram stabilization Refills: 0 Pharm 1 TABLET Take 1 tab po QPM. Multivitamin (One Dose: ORAL, DAILY for vitamin Qty: 14 Sent to Daily Multivitamin) 1 Tablet support Refills: 0 Pharm 1 1 EACH TABLET Take 1 tab po daily. CONTINUE taking these Home Medications: Fexofenadine HCl Dose: ORAL, DAILY for (Paola Allergy) 180 MG 1 Tablet ALLERGIES TABLET STOP taking these DISCONTINUED Home Medications: Clonazepam (Clonazepam) 1 MG Dose: ORAL, THREE TIMES DAILY for TABLET 1 Tablet ANXIETY Reason Stopped: Changed Dose 1: [id number], [address] [place] [address] Your Preferred Pharmacy [id number] [address] [place] [id number] Multiple Neuroleptics: ([X]) Not Applicable OR Document below three failed attempts at monotherapy, or a plan to taper to monotherapy, or augmentation of Clozapine. () Patient's Diet: Regular. Patient's Activity: No restrictions. DC Disposition: The patient to return to home and roommate. Recommendations: The patient was advised to please take her medications as prescribed. She was advised to abstain from all substances, to attend weekly AA meetings and to obtain a sponsor for support in sobriety. She was advised to follow up with below referrals. She was also advised that in the event of an emergency to call [phone] to the nearest emergency department. The patient verbalized understanding of all instructions. Referred To: Post Discharge Referrals Provider Referral Service Date: 04/27/17 Referred To: [Angela Saul LCSW] Notes: Angela Saul LCSW [address] [place] [address] Appointment scheduled for 04/27/17 at 6:00pm Provider Referral Service Date: 05/04/17 Referred To: [[facility]] Notes: [address] [place] [address] Outpatient [place], [place] [phone] *Medication appointment/assessment scheduled for 05/04/17 at 8:30am (arrive at 8: 15am) with Son Palmer APRN Copies To: [facility]; Angela Saul LCSW
--- NOTE | 2017-04-24 16:44 | SOCIAL WORKER PROG NOTE PSYCH ---
Social Work Progress Note Progress Note González Cardoso APRN and this SW met with pt this morning. Medications and discharge plans were reviewed. Regarding discharge plan, pt was not in agreement with attending IOP, including an IOP closer to home ([facility]), due to her work schedule. An outpatient appointment was scheduled with Angela Saul LCSW for 04/27/17 at 6pm and a medication/intake appointment with Son Palmer APRN at [facility] for 05/04/17 (8:30am, arrive 8:15am). Pt stated that she would be able to attend these appointments. She presented as alert and oriented, engaged in the conversation. She denied SI/HI. Pt discussed plans to attend AA meetings and has people that she plans to be in contact with within the AA community upon discharge from this hospital.
--- NOTE | 2017-04-27 11:18 | SOCIAL WORKER PROG NOTE PSYCH ---
Social Work Progress Note Progress Note Sw spoke with Kaley Peace at [facility] ([phone]). Discharge information was provided.
== END 2017-04-24 14:02 | DRG 881 ==
LOC: ERH 01:33 → ERHI 02:44 → CANBEDREQ 12:51 → ENTRNSPT 13:06 → CMPTRNSPT 13:29 → ERHI 15:10 → CP SOUTH 15:10 → ENTRNSPT 19:07 → CP SOUTH 19:30 → CMPTRNSPT 20:11 → ENRESERV 23:59 → CP SOUTH 04-20 10:08
PROVIDERS: Emergency Medicine; ADMIT Psychiatry & Neurology Psychiatry
DX: F32.9 Major depressive disorder, single episode, unspecified (principal); Z72.89 Other problems related to lifestyle
CPT/HCPCS: 80307; 81025; 93005; 93010; G0480; J3490